=== PATIENT | female | born 1980 ===

== ENCOUNTER 2017-03-25 07:49 | Day surgery (SDC) | payer MEDICAID ==
[2017-03-21 12:13] VITALS: BMI 28.9
[2017-03-25] MEDS ORDERED: Propofol 10 mg/ml Inj (20 ML) ONE ×2 (09:48→11:17)
[2017-03-25] MEDS ORDERED: Midazolam 2 MG/2 ML VIAL ONE (09:48)
[2017-03-25] MEDS ORDERED: Lactated Ringer's 1,000 ML IV ONE ×3 (10:16→13:10)
[2017-03-25] MEDS ORDERED: cefOXitin IV 2 gm in Dextrose 2 GM/50 ML BAG IVPB ONE (10:42)
[2017-03-25] MEDS ORDERED: Bupivacaine HCl 0.25% PF (10 ml) Inj ONE (10:42)
[2017-03-25] MEDS ORDERED: Oxycodone/Acetaminophen 5/325 mg Tab PO PRN (11:51)
--- NOTE | 2017-03-25 11:56 | PCM.SURG1 ---
Surgeon's Initial Post Op Note - Surgeon's Notes Surgeon: Julio Tyson Load Tester: Key Type of Anesthesia: General Endo Anesthesia Administered By: Dr Otoniel Langston Pre-Operative Diagnosis: multiparity requesting sterilisation, menorrhagia, endometrial polyp Operative Findings: laparoscopy-normal appearing bilateral fallopian tubes, normal appearing liver edge. cervical polyp, ?polypoid like endometrial tissue Post-Operative Diagnosis: multiparity , cervical polyp Operation Performed: operative hysteroscopy, fractional d&c,polypectomy Specimen/Specimens Removed: ecc, emc Estimated Blood Loss: EBL {In ML}: 10 Blood Products Given: N/A Drains Used: No Drains Post-Op Condition: Good Date of Surgery/Procedure: 03/25/17 Time of Surgery/Procedure: 10:40 (in the or)
[2017-03-25] MEDS: HYDROmorphone 0.5 mg/0.5 ml ISec IVP PRN ×3 (12:08→12:50)
[2017-03-25] MEDS ORDERED: HYDROmorphone 0.5 mg/0.5 ml ISec ONE (12:09)
[2017-03-25 13:44] VITALS: BP 102/61; PULSE 60; RESP 18; TEMP 98; O2SAT 100
--- NOTE | 2017-04-01 23:21 | OP ---
PROCEDURE DATE: 03/25/2017 PREOPERATIVE DIAGNOSES: 1. Multiparity, requesting sterilization. 2. Menorrhagia and endometrial polyp. POSTOPERATIVE DIAGNOSES: 1. Multiparity. 2. Endometrial/cervical polyp. COMPLICATIONS: None. ESTIMATED BLOOD LOSS: 10 mL SURGEON: Dr. Julio Tyson MANUFACTURING CONTROLLER: Key, the neurosurgical physician assistant. The procedure required a neurosurgical physician assistant to assist with entry into the abdominal cavity and to assist with retracting of the tissues in order to perform bilateral tubal ligation. The neurosurgical physician assistant was present and scrubbed for the duration of the procedure. PROCEDURE PERFORMED: Operative hysteroscopy, fractional dilation and curettage, polypectomy, and laparoscopic bilateral tubal ligation. SPECIMENS: Endometrial curettage and endocervical curettage. COMPLICATIONS: None. ANESTHESIA: General endotracheal. ANESTHESIOLOGIST: Otoniel Langston MD PROCEDURE IN DETAIL: After informed consent was obtained, the patient was taken to the operating room and placed in dorsal supine position. General anesthesia was then induced and the patient was intubated without any difficulty. She was thereafter placed in dorsal lithotomy position and she was thereafter prepped and draped in the usual sterile manner. The Leon catheter was then placed transurethrally. Exam under anesthesia was performed and this revealed an approximately 6 to 8 weeks' size anteverted uterus. The sterile speculum was then placed in the vagina and the anterior lip of the cervix was grasped with a single-toothed tenaculum. The cervix was thereafter dilated and a HUMI uterine manipulator was placed after sounding the uterus to approximately 8 cm. The speculum was removed and the tenaculum was removed as well. Attention was then turned to the patient's abdomen. A 5 mm skin incision was made after infiltrating the skin in the umbilical fold with 0.5% Marcaine. The Veress needle was introduced through this skin incision in the umbilical fold and drop in saline was noted after introduction of the Veress needle. The Veress needle was then hooked up to the gas and pneumoperitoneum was created. The Veress was removed and a 5 mm trocar under direct visualization was placed in the umbilical cord. The intraabdominal placement was confirmed with the help of the laparoscope. The patient was thereafter placed in Trendelenburg position and 5 mm ports were placed in the right lower quadrant and left lower quadrant. A survey of the patient's pelvis revealed a normal-appearing uterus and normal-appearing tubes and ovaries bilaterally. The right fallopian tube was thereafter grasped with the help of the LigaSure in the midsection and it was cauterized for approximately 3 cm and then cut in the center of the cauterized area. Images were taken and it was noted that both the ends were cut and cauterized. Similar procedure was repeated on the left side. Adequate hemostasis was noted from the sites of the tubal ligation. The pelvis was irrigated and suctioned. The instruments were removed from the patient's pelvis under visualization. The skin was thereafter closed with 4-0 Monocryl in a subcuticular manner. Steri-Strips were applied over the skin incision. Attention was now turned to the patient's vagina. The HUMI uterine manipulator was removed and the sterile speculum was then placed in the vagina. The cervix was grasped with A single tooth tenaculum. Hysteroscope was thereafter introduced into the patient's uterus after dilating the cervix to approximately 18 mm and on entry, it was noted that there was a questionable polypoid structure in the lower uterine segment encroaching the internal cervical os, but otherwise normal-appearing cervical lining was noted. Both the fallopian tube ostia were visualized and no other uterine pathology was noted at this point. Captured endocervical curettage was performed and then for the endometrium and these specimens were sent over to pathology. The hysteroscope was once again introduced into the patient's uterine cavity and on visualization, the polyp which was seen in the lower uterine segment was no longer visualized. The hysteroscope was removed and adequate hemostasis was noted from the tenaculum site. After removal of the tenaculum, the speculum was removed. The patient was thereafter taken out of the lithotomy position. The Leon catheter was discontinued. The patient was extubated and taken to the recovery room in stable condition. The sponge, lap, needle, and instrument count was correct x3 as reported to me. Jluio Tyson MD [facility]
== END 2017-03-25 15:05 | disposition home or self-care (01) ==
LOC: C.SDS 07:49
PROVIDERS: ATTEND Student in an Organized Health Care Education/Training Program
DX: N84.0 Polyp of corpus uteri (principal); N92.4 Excessive bleeding in the premenopausal period; R10.10 Upper abdominal pain, unspecified; N84.1 Polyp of cervix uteri; N92.0 Excessive and frequent menstruation with regular cycle
CPT/HCPCS: 36415; 58558; 86850; 86900; 88305; J0694; J1170; J2250; J2704; J3010; J7120

== ENCOUNTER 2017-07-31 07:28 | Day surgery (SDC) | payer MEDICAID ==
[2017-03-21 12:13] VITALS: BMI 28.9
[2017-07-31] MEDS ORDERED: Lactated Ringer's 1,000 ML IV ONE ×2 (08:22)
[2017-07-31] MEDS ORDERED: HYDROmorphone 0.5 mg/0.5 ml ISec IVP PRN (09:12)
[2017-07-31] MEDS ORDERED: Midazolam 2 MG/2 ML VIAL ONE (09:18)
[2017-07-31] MEDS ORDERED: Propofol 10 mg/ml Inj (20 ML) ONE (09:18)
[2017-07-31] MEDS ORDERED: Oxycodone/Acetaminophen 5/325 mg Tab PO PRN (09:34)
--- NOTE | 2017-07-31 09:42 | PCM.SURG1 ---
Surgeon's Initial Post Op Note - Surgeon's Notes Surgeon: Julio Tyson Or Director: None Type of Anesthesia: General LMA Anesthesia Administered By: Dr Brian De Leon Pre-Operative Diagnosis: Menorrhagia Operative Findings: uterus with small polyp in fundal area; normal appearing cervix Post-Operative Diagnosis: Menorrhagia, endometrial polyp Operation Performed: Hysteroscopy, D&C, polypectomy, endometrial ablation using novasure Specimen/Specimens Removed: Endometrial curettage Estimated Blood Loss: EBL {In ML}: 10 Blood Products Given: N/A Drains Used: No Drains Post-Op Condition: Good Date of Surgery/Procedure: 07/31/17 Time of Surgery/Procedure: 08:33 (In the OR at 8.33am)
[2017-07-31] MEDS ORDERED: Lactated Ringer's 500 ML IV ONE (11:00)
[2017-07-31 11:23] VITALS: RESP 16; TEMP 98
[2017-07-31 12:09] VITALS: BP 113/59; PULSE 84; O2SAT 98
== END 2017-07-31 12:10 | disposition home or self-care (01) ==
LOC: C.SDS 07:28
PROVIDERS: ATTEND Student in an Organized Health Care Education/Training Program
DX: N92.4 Excessive bleeding in the premenopausal period (principal); N84.0 Polyp of corpus uteri; N92.0 Excessive and frequent menstruation with regular cycle
CPT/HCPCS: 58563; 88305; J1100; J1170; J1885; J2250; J2405; J2704; J2765; J3010; J7120